=== PATIENT | male | born 2000 | race Asian ===

== ENCOUNTER 2024-03-03 08:44 | Emergency (ER) | payer OTHER ==
[~2024-03-03] VITALS: Ht 170.2 cm; Wt 73.5 kg
[2024-03-03] MEDS: KETOROLAC 30 MG/ML 1ML VIAL IM ONE (12:07)
[2024-03-03] MEDS: methocarbamoL 500 MG TAB PO ONE (12:07)
[2024-03-03 12:12] LABS: BASO % 0.6 % (0.0-1.0); EOS # 0.1 10^3/uL (0.0-0.5); EOS % 2.1 % (0.0-3.0); HEMATOCRIT 41.4 % (42.0-52.0); HEMOGLOBIN 14.1 g/dl (13.5-17.5); LYMPH # 1.2 10^3/uL (1.5-5.0); LYMPH % 36.1 % (24.0-44.0); MEAN CORPUSCULAR HEMOGLOBIN 29.6 pg (27.0-33.0); MEAN CORPUSCULAR HGB CONC 34.1 g/dl (32.0-36.5); MONO # 0.2 10^3/uL (0.0-0.8); MONO % 7.3 % (2.0-8.0); NEUTROPHILS # 1.8 10^3/uL (1.5-8.5); NEUTROPHILS % 53.6 % (36.0-66.0); PLATELET COUNT, AUTOMATED 225 10^3/uL (150-450); RED BLOOD COUNT 4.76 10^6/uL (4.30-6.10); WHITE BLOOD COUNT 3.3 10^3/uL (4.0-10.0)
[2024-03-03] MEDS ORDERED: METH-1164 PO (14:13)
[2024-03-03] MEDS ORDERED: NAPR-837 PO (14:13)
[2024-03-03 14:36] VITALS: BP 144/85; TEMP 97.1; O2SAT 99
== END 2024-03-03 14:41 | disposition home or self-care (01) ==
LOC: M ED 08:44
DX: R10.9 Unspecified abdominal pain (principal)
CPT/HCPCS: 74176; 80047; 81001; 85025; 96372; 99284; J1885